=== PATIENT | male | born 1965 | race Caucasian/White ===

== ENCOUNTER 2017-10-22 10:03 | Emergency (ER) | payer OTHER, SELFPAY ==
[2017-10-22 10:04] VITALS: BP 159/94; PULSE 89; RESP 18; TEMP 36.5; O2SAT 96; BMI 38.4
--- NOTE | 2017-10-22 10:43 | XR_ITS ---
XR chest 2V HISTORY: ITS.REASON: left chest pain. ORDERING PHYSICIAN: Georgina Haas MD PATIENT AGE: 52 years COMPARISON: 01/23/2008 FINDINGS: The cardiomediastinal silhouette and pulmonary vascularity are within normal limits. The lungs are clear without infiltrates, suspicious nodules, or pleural effusions. There is slight decrease in height anteriorly of T11 and T12 which may be chronic.. IMPRESSION: 1. No acute cardiac or pulmonary pathology. 2. Mild decrease in height of T11 and T12 possibly chronic
--- NOTE | 2017-10-22 10:46 | HMH.EDGENADL ---
ED Disposition Clinical Impression: MUSCULESKELETAL CHEST PAIN, HTN, Diabetes mellitus Disposition: Home, Self-Care Condition on Discharge: Good Additional Instructions: The patient was ruled out for myocardial infarction and pulmonary embolism by negative troponin and d-dimer. His pain was musculoskeletal in nature. I had an extensive discussion with Mr. Greenfield about the need of controlling his cardiac risk factors. Need to take his medications for blood pressure and diabetes. Need to follow-up with a primary care physician for cholesterol checkup. He was advised for a daily aspirin and was given a prescription for muscle relaxant Robaxin. He verbalized understanding. He was discharged in a hemodynamically and neurologically condition. Referrals: Rosalie Streeter APRN [Primary Care Provider] - Juan Jose David MD [Staff Physician] - - Critical Care Critical Care Time: No Attestation: On 10/22/17, the high probability of a clinically significant, sudden or life threatening deterioration of the following system(s) required my full and direct attention, intervention and personal management. The time I documented below is in addition to time spent performing reported procedures but includes the following listed in this critical care notation. Medical Decision Making Vital Signs: 10/22/17 10:04 10/23/17 00:19 Temperature 97.7 F 98.3 F Temperature Source Oral Oral Pulse Rate 86 Pulse Rate [Right Brachial] 89 Respiratory Rate 18 20 Blood Pressure 153/91 Blood Pressure [Right Arm] 159/94 Blood Pressure Mean [Right Arm] 115 Blood Pressure Source Automatic Cuff Blood Pressure Source [Right Arm] Automatic Cuff Blood Pressure Position Sitting Blood Pressure Position [Right Arm] Sitting 02 Sat by Pulse Oximetry 96 Oxygen Delivery Method Room Air Room Air - Lab Data Lab Results 10/22/17 11:00: WBC 7.3, RBC 5.24, Hgb 16.1, Hct 48.2, MCV 91.9, MCH 30.7, MCHC 33.3, RDW 13.1, Plt Count 270, MPV 7.6, Neut % (Auto) 74.4, Lymph % (Auto) 18.0, [place] % (Auto) 5.7, Eos % (Auto) 1.5, Baso % (Auto) 0.5, Neut # (Auto) 5.4, Lymph # (Auto) 1.3, [place] # (Auto) 0.4, Eos # (Auto) 0.1, Baso # (Auto) 0.0 10/22/17 11:00: D-Dimer 126 10/22/17 11:00: Sodium 137, Potassium 3.7, Chloride 100, Carbon Dioxide 30, Anion Gap 10.7, BUN 7, Creatinine 0.85, Estimated Creat Clear 172, Estimated GFR > 60, Est GFR ( Amer) > 60, Glucose 221 H, Calcium 8.4 L, Total Bilirubin 0.4, AST 23, ALT 35, Alkaline Phosphatase 110, Total Creatine Kinase 187, CK-MB (CK-2) 0.5, CK-MB (CK-2) Rel Index 0.3, Troponin I < 0.02, Total Protein 7.8, Albumin 3.8, Globulin 4.0 H, Albumin/Globulin Ratio 1.0 L 10/22/17 11:00: B-Natriuretic Peptide 24 Result diagrams: 10/22/17 11:00 10/22/17 11:00 Orders (Tests/Meds): ED MEDICATIONS Discontinued Medications Generic Name Dose Route Start Last Admin Trade Name Milind PRN Reason Stop Dose Admin Methocarbamol 1,000 mg 10/22/17 10:45 Methocarbamol 500mg Tablet PO 10/22/17 10:46 ONCE ONE ORDERS Category Date Time Status ECG Request by /Nse Stat Y 10/22/17 10:43 Ordered - Demarco Inquiry Pt receiving controlled substance: No Demarco was queried for this patient: No General Adult HPI - General Chief complaint: PAIN Stated complaint: L breast pain, upper back pain Mode of Arrival: Ambulatory Source of Information: Patient Limitations: No Limitations Description of Symptoms (Recalled from ER Triage Doc. by RN): Pt reports pain in L breast area and upper back that began yesterday, states pain is intermittent and spasms in nature. States pain makes his fingertips go numb. States pain worsens with movement. - History of Present Illness HPI narrative: 52 years old white male with long-standing history of hypertension diabetes and left and right cardiac catheterization 1 year ago that was free of disease. The patient account. He has not seen his primary care physic
--- NOTE | 2017-10-22 10:49 | ED_ITS ---
ED Disposition Clinical Impression: MUSCULESKELETAL CHEST PAIN, HTN, Diabetes mellitus Disposition: Home, Self-Care Condition on Discharge: Good Additional Instructions: The patient was ruled out for myocardial infarction and pulmonary embolism by negative troponin and d-dimer. His pain was musculoskeletal in nature. I had an extensive discussion with Mr. Greenfield about the need of controlling his cardiac risk factors. Need to take his medications for blood pressure and diabetes. Need to follow-up with a primary care physician for cholesterol checkup. He was advised for a daily aspirin and was given a prescription for muscle relaxant Robaxin. He verbalized understanding. He was discharged in a hemodynamically and neurologically condition. Referrals: Rosalie Streeter APRN [Primary Care Provider] - Juan Jose David MD [Staff Physician] - - Critical Care Critical Care Time: No Attestation: On 10/22/17, the high probability of a clinically significant, sudden or life threatening deterioration of the following system(s) required my full and direct attention, intervention and personal management. The time I documented below is in addition to time spent performing reported procedures but includes the following listed in this critical care notation. Medical Decision Making Vital Signs: 10/22/17 10:04 10/23/17 00:19 Temperature 97.7 F 98.3 F Temperature Source Oral Oral Pulse Rate 86 Pulse Rate [Right Brachial] 89 Respiratory Rate 18 20 Blood Pressure 153/91 Blood Pressure [Right Arm] 159/94 Blood Pressure Mean [Right Arm] 115 Blood Pressure Source Automatic Cuff Blood Pressure Source [Right Arm] Automatic Cuff Blood Pressure Position Sitting Blood Pressure Position [Right Arm] Sitting 02 Sat by Pulse Oximetry 96 Oxygen Delivery Method Room Air Room Air - Lab Data Lab Results 10/22/17 11:00: WBC 7.3, RBC 5.24, Hgb 16.1, Hct 48.2, MCV 91.9, MCH 30.7, MCHC 33.3, RDW 13.1, Plt Count 270, MPV 7.6, Neut % (Auto) 74.4, Lymph % (Auto) 18.0 , [place] % (Auto) 5.7, Eos % (Auto) 1.5, Baso % (Auto) 0.5, Neut # (Auto) 5.4, Lymph # (Auto) 1.3, [place] # (Auto) 0.4, Eos # (Auto) 0.1, Baso # (Auto) 0.0 10/22/17 11:00: D-Dimer 126 10/22/17 11:00: Sodium 137, Potassium 3.7, Chloride 100, Carbon Dioxide 30, Anion Gap 10.7, BUN 7, Creatinine 0.85, Estimated Creat Clear 172, Estimated GFR > 60, Est GFR ( Amer) > 60, Glucose 221 H, Calcium 8.4 L, Total Bilirubin 0.4, AST 23, ALT 35, Alkaline Phosphatase 110, Total Creatine Kinase 187, CK-MB (CK-2) 0.5, CK-MB (CK-2) Rel Index 0.3, Troponin I < 0.02, Total Protein 7.8, Albumin 3.8, Globulin 4.0 H, Albumin/Globulin Ratio 1.0 L 10/22/17 11:00: B-Natriuretic Peptide 24 Result diagrams: 10/22/17 11:00 10/22/17 11:00 Orders (Tests/Meds): ED MEDICATIONS Discontinued Medications Generic Name Dose Route Start Last Admin Trade Name Milind PRN Reason Stop Dose Admin Methocarbamol 1,000 mg 10/22/17 10:45 Methocarbamol 500mg Tablet PO 10/22/17 10:46 ONCE ONE ORDERS Category Date Time Status ECG Request by /Isac Stat Y 10/22/17 10:43 Ordered - Demarco Inquiry Pt receiving controlled substance: No Demarco was queried for this patient: No General Adult HPI - General Chief complaint: PAIN Stated complaint: L breast pain, upper back pain
[2017-10-22 20:35] LABS: Creatine Kinase 187 U/L (39-308)
[2017-10-22 20:36] LABS: Alanine Aminotransferase 35 U/L (12-78); Albumin Level 3.8 gm/dL (3.4-5.0); Anion Gap 10.7 mEq/L (5-15); Aspartate Amino Transferase 23 U/L (15-37); Bilirubin,Total 0.4 mg/dL (0.2-1.0); Blood Urea Nitrogen 7 mg/dL (7-18); CKMB Relative Index 0.3 U/L (0-4.0); Calcium 8.4 mg/dL (8.5-10.1); Carbon Dioxide 30 mmol/L (21.0-32.0); Chloride 100 mmol/L (98-107); Creatine Kinase MB 0.5 mg/ml (0.0-3.6); Creatinine Clearance Estimated 172 mL/min (0-300); Creatinine,Serum 0.85 mg/dL (0.70-1.30); Estimated Glomerular Filt Rate > 60 ml/min (>60); GFR (African American) > 60 ML/MIN (>60); Glucose 221 mg/dL (74-106); Potassium 3.7 mmoL/L (3.5-5.1); Sodium 137 mmol/L (136-145); Total Protein,Serum 7.8 gm/dL (6.4-8.2); Troponin I < 0.02 ng/ml (0.00-0.06)
[2017-10-22 20:37] LABS: Alkaline Phosphatase 110 U/L (46-116); D-Dimer 126 (0-400); Hematocrit 48.2 % (42.0-52.0); Hemoglobin 16.1 g/dL (14.1-18.0); Mean Corpuscular Hemoglobin 30.7 pg (27.0-31.2); Mean Corpuscular Volume 91.9 fl (80-94); Red Blood Count 5.24 M/mm3 (4.60-6.20); White Blood Count 7.3 K/mm3 (4.8-10.8)
[2017-10-22 20:38] LABS: Basophils % 0.5 % (0.1-2.0); Eosinophils # 0.1 K/mm3 (0.0-0.4); Eosinophils % 1.5 % (0.1-12.0); Lymphocytes # 1.3 K/mm3 (0.7-4.5); Mean Corpuscular HGB Conc 33.3 g/dL (31.8-35.4); Mean Platelet Volume 7.6 fl (7.4-10.4); Monocytes # 0.4 K/mm3 (0.1-1.0); Monocytes % 5.7 % (1.7-9.3); Neutrophils # 5.4 K/mm3 (1.8-7.8); Neutrophils % 74.4 % (37.0-80.0); Platelet Count 270 K/mm3 (142-424); Red Cell Distribution Width 13.1 % (11.5-17.5)
[2017-10-23 00:19] VITALS: BP 153/91; PULSE 86; RESP 20; TEMP 36.8; O2SAT 98
== END 2017-10-22 12:34 | disposition home or self-care (01) ==
PROVIDERS: Emergency Provider Emergency Medicine; Family Provider Nurse Practitioner Family; PCP Nurse Practitioner Family
DX: R07.89 Other chest pain (principal); I10 Essential (primary) hypertension; E11.9 Type 2 diabetes mellitus without complications
CPT/HCPCS: 71046; 80053; 82550; 82553; 83880; 84484; 85025; 85378; 93005; 99282

== ENCOUNTER 2017-11-02 14:16 | Emergency (ER) | payer OTHER, SELFPAY ==
--- NOTE | 2017-11-02 16:08 | HMH.EDUTC ---
[facility] – [place], [place] Disposition Clinical Impression: BACK PAIN, Non-compliant behavior Back pain Qualifiers: Back pain location: back pain in unspecified location Chronicity: acute Back pain laterality: unspecified Qualified Code(s): M54.9 - Dorsalgia, unspecified Disposition: Left Against Medical Advice Condition on Discharge: Fair Additional Instructions: STRONGLY encouraged at least a follow up with Dr. David's office as scheduled. Educated on appropriate amount of tylenol/motrin and muscle relaxers. Aware of the risk associated with taking too much medication and reports I am not concerned See reevaluation notes. Lots of education re: risks but patient showed little interest in my speaking and walking away, out of the clinic, as I was speaking to him. Referrals: Juan Jsoe David MD [Staff Physician] - (Call tomorrow for possible appt tomorrow but if can't get in, scheduled appt for (one week) at 2pm with Linda.) Time of Disposition: 16:45 Medical Decision Making - Medical Records Medical records reviewed: Yes: I reviewed the patient's medical records. MR Comment: all of ER visit last week rvwd - Physician Consults Physician Consulted: Dr. De Los Santos, ER MD Time: 16:30 Reason -: Pt condition Comment/Response: Discussed PMHx, HPI, visit last week, complaints and exam today. He rvwd chart from last week and today. Suggest cardiac workup and follow up with primary care. Called Dr. David's office. Appt for sure in one week, at 2pm w/ Eugonda. Could potentially see tomorrow if one of their providers is no longer sick. Pt to call in morning for appt tomorrow. - Demarco Inquiry Pt receiving controlled substance: No - Reevaluation(s) Time: 16:20 Reevaluation #1: 0220: Discussed possible differentials and treatment plans with patient. Refusing toradol and/or norflex injections. Absolutely will not agree to any shot pt reports. Aware I will discuss his case with the ERMD as he reports trying most treatment options. 1640: Discussed ER MD's recommendations and scheduled follow up appt easily with [place] in Dr. David's office. No interview required and she had never heard of this. Pt refusing any workup, even an EKG, and still refusing injections. Ready to leave without treatment. Discussed risk associated w/ chronic untreated health conditions and current symptoms/possible differentials. Pt refusing any workup and any treatment now. He isn't sure why he even came in he states. Reports again that a previous provider told him there was nothing wrong and the ER last week told him it was muscle so obviously I should be fine and will fucking live with it . Attempted to discuss risks and possible outcomes, pt interrupts and says I know. I will like my parents and I am ok with that . Denies SI/HI/depression. It just is what it is . States he will most likely not got to the follow up appt I scheduled for him and he is not interested in restarting any medications despite the life threatening health complications he is at risk for. Attempted to make aware that several of the medications he was taking could potentially help this pain but patient already on his way down the all towards the exit and is no longer acknowledging my speaking. [facility] – [place], [place] HPI - General Stated complaint: muscle spasm Time Seen by Provider: 11/02/17 16:08 - History of Present Illness Provider Complaint: c/o persistant muscle spasms since ER visit last week. no known injuries/trauma. No longer in chest but instead, have moved multiple times to different locations. Was intially chest. Seen in ER. Cardiac cause ruled out. Dx musculoskeletal and STRONGLY enc follow up with primary care. Pt has not followed up. Reports previous PCP told him after a heart cath one year ago that nothing was wrong with me and I was just too fat . pt states he decided if nothing was wrong then he no longer needed to see a doctor or take any of his medications. Hasn't taken any routine meds sin
== END 2017-11-02 17:13 | disposition left against medical advice (07) ==
PROVIDERS: Emergency Provider Nurse Practitioner Family; Family Provider Nurse Practitioner Family
DX: M54.9 Dorsalgia, unspecified (principal); Z53.21 Procedure and treatment not carried out due to patient leaving prior to being seen by health care provider; I10 Essential (primary) hypertension; F41.9 Anxiety disorder, unspecified; E11.9 Type 2 diabetes mellitus without complications; Z91.19 Patient's noncompliance with other medical treatment and regimen
CPT/HCPCS: 99201

== ENCOUNTER → 2017-11-24 11:04 | Outpatient (CLI) | payer OTHER, SELFPAY ==
--- NOTE | 2017-11-24 11:20 | CA_ITS ---
PROCEDURE: 2-D M-mode and color Doppler study INDICATIONS FOR THE TEST: Chest pain X COPD Heart Murmur Tobacco Smoking Palpitations Fatigue Syncope Edema HypertensionXDiabetes MellitusX Rheumatic Fever SOB DOEXObesityXHyperlipidemiaX Family History HD Additional History CAD PATIENT INFORMATION HEIGHT: 70 WEIGHT:234 GENDER: Male B/P:120/80 2-D/M-MODE INTERPRETATION: 2-D MEASUREMENTS OBSERVED VALUES IN CMS Right Ventricular Dimension (RVDd) 2.1 Interventricular Septum (Thickness)(IVsd) 1.0 Left Ventricular Internal Dimensions(LVIDd) 5.7 Left Ventricular Posterior Wall (Thickness)(LVPWd) 1.0 Aortic Root 3.2 Aortic Cusp Separation 1.7 Left Atrial Dimensions (LAD) 4.0 2D 1. Left atrium is mildly enlarged, left ventricle is normal size, left ventricle wall thickness is upper limit of the normal, there is preserved left ventricular systolic function, visually estimated ejection fraction 55% with no obvious regional wall motion abnormality. 2. The right atrium and right ventricle are mildly enlarged with normal contractility 3. The aortic valve is minimally thickened and fibrosed. 4. The mitral and tricuspid valve is structurally normal. 5. The pulmonic valve is poorly visualized. 6. No significant pericardial effusion noted. DOPPLER INTERROGATION: Doppler interrogation of the aortic, mitral and tricuspid valvular presence of mild mitral and tricuspid regurgitation, tricuspid and jet velocity is insufficient for calculation of the right ventricular systolic pressure, grade 1 diastolic dysfunction seen without tissue Doppler evidence of raised left atrial pressure. CONCLUSION: 1. Mild biatrial enlargement, normal left ventricular size, visually estimated ejection fraction 55% with no obvious regional wall motion abnormality, grade 1 diastolic dysfunction seen without tissue Doppler evidence of raised left atrial pressure. 2. Mild mitral and tricuspid regurgitation 3. No significant pericardial effusion noted.
[2017-11-24 12:04] LABS: Basophils # 0.1 K/mm3 (0-0.2); Eosinophils # 0.1 K/mm3 (0.0-0.4); Eosinophils % 2.5 % (0.1-12.0); Hemoglobin 16.8 g/dL (14.1-18.0); Lymphocytes # 1.5 K/mm3 (0.7-4.5); Lymphocytes % 27.2 K/mm3 (10-50); Mean Corpuscular HGB Conc 32.9 g/dL (31.8-35.4); Mean Corpuscular Hemoglobin 29.6 pg (27.0-31.2); Mean Corpuscular Volume 89.8 fl (80-94); Mean Platelet Volume 7.3 fl (7.4-10.4); Monocytes # 0.4 K/mm3 (0.1-1.0); Monocytes % 7.5 % (1.7-9.3); Neutrophils # 3.4 K/mm3 (1.8-7.8); Neutrophils % 61.9 % (37.0-80.0); Platelet Count 274 K/mm3 (142-424); Red Blood Count 5.68 M/mm3 (4.60-6.20); Red Cell Distribution Width 12.8 % (11.5-17.5); White Blood Count 5.5 K/mm3 (4.8-10.8)
[2017-11-24 12:49] LABS: Alanine Aminotransferase 34 U/L (12-78); Albumin Level 3.8 gm/dL (3.4-5.0); Alkaline Phosphatase 110 U/L (46-116); Anion Gap 9.7 mEq/L (5-15); Aspartate Amino Transferase 17 U/L (15-37); Bilirubin,Total 0.5 mg/dL (0.2-1.0); Blood Urea Nitrogen 11 mg/dL (7-18); Carbon Dioxide 34 mmol/L (21.0-32.0); Chloride 102 mmol/L (98-107); Chol/HDL Ratio 6.5 (1-3.5); Cholesterol 208 mg/dL (140-200); Creatinine,Serum 0.88 mg/dL (0.70-1.30); Estimated Glomerular Filt Rate 91 ml/min (>60); GFR (African American) 110 ML/MIN (>60); Glucose 207 mg/dL (74-106); HDL Cholesterol 32 mg/dL (27-67); LDL Cholesterol 161 mg/dL (0-130); Potassium 4.7 mmoL/L (3.5-5.1); Sodium 141 mmol/L (136-145); T4 (Thyroxine) 6.1 ug/dl (4.7-13.3); Thyroid Stimulating Hormone 0.71 uIU/ml (0.358-3.740); Total Protein,Serum 7.8 gm/dL (6.4-8.2); Triglycerides 77 mg/dL (30-200); VLDL Cholesterol 15 mg/dL (0-40)
[2017-11-24 15:05] LABS: Hemoglobin A1C 8.4 % (0.0-7.0)
[2017-11-25 06:16] LABS: Hep A Ab, IgM Negative (Negative); Hepatitis B Core Antibody IgM Negative (Negative); Hepatitis B Surface Antigen Negative (Negative)
[2017-11-25 19:09] LABS: Hepatitis C Antibody 0.2 s/co ratio (0.0-0.9); Vitamin D 25 Hydroxy 34.1 ng/mL (30.0-100.0)
[2017-11-25 19:11] LABS: Microalbumin, Urine 3.1 ug/mL (Not Estab.)
== END ==
PROVIDERS: Family Provider Nurse Practitioner Family; PCP Nurse Practitioner Family; Visit Provider Internal Medicine
DX: I20.1 Angina pectoris with documented spasm (principal); I10 Essential (primary) hypertension; E78.5 Hyperlipidemia, unspecified; E11.9 Type 2 diabetes mellitus without complications; K21.9 Gastro-esophageal reflux disease without esophagitis; G47.33 Obstructive sleep apnea (adult) (pediatric)
CPT/HCPCS: 36415; 80053; 80061; 80074; 82043; 82652; 83036; 84436; 84443; 85025; 93306

== ENCOUNTER → 2017-11-30 10:10 | Outpatient (REF) | payer OTHER, SELFPAY ==
[2017-11-30 13:54] LABS: Amphetamine/Metha Screen,Urine Negative ng/mL (<1000); Barbiturates Screen,Urine Negative ng/mL (<200); Benzodiazepines Screen,Urine Negative ng/mL (200); Cannabinoid Screen,Urine Negative ng/mL (<50); Cocaine Screen,Urine Negative ng/g (<300); Methadone Screen,Urine Negative ng/mL (<300); Opiate Screen,Urine Negative ng/mL (<300); Phencyclidine Screen,Urine Negative ng/mL (<25)
== END ==
LOC: LAB 10:10
PROVIDERS: Visit Provider Nurse Practitioner Family
DX: Z79.899 Other long term (current) drug therapy (principal)
CPT/HCPCS: 80305

== ENCOUNTER → 2018-02-19 11:29 | Outpatient (CLI) | payer OTHER, SELFPAY | PROVIDERS: PCP Nurse Practitioner Family; Visit Provider Internal Medicine Cardiovascular Disease | DX: R06.02 Shortness of breath (principal); I10 Essential (primary) hypertension | CPT/HCPCS: 95806 ==

== ENCOUNTER → 2018-04-10 14:14 | Outpatient (REF) | payer OTHER, SELFPAY ==
[2018-04-10 19:52] LABS: Amphetamine/Metha Screen,Urine Negative ng/mL (<1000); Barbiturates Screen,Urine Negative ng/mL (<200); Benzodiazepines Screen,Urine Negative ng/mL (200); Cannabinoid Screen,Urine Negative ng/mL (<50); Cocaine Screen,Urine Negative ng/g (<300); Methadone Screen,Urine Negative ng/mL (<300); Opiate Screen,Urine Negative ng/mL (<300); Phencyclidine Screen,Urine Negative ng/mL (<25)
== END ==
LOC: LAB 14:14
PROVIDERS: Visit Provider Nurse Practitioner Family
DX: Z79.899 Other long term (current) drug therapy (principal)
CPT/HCPCS: 80305

== ENCOUNTER → 2018-06-13 16:20 | Outpatient (REF) | payer OTHER, SELFPAY ==
[2018-06-13 19:43] LABS: Amphetamine/Metha Screen,Urine Negative ng/mL (<1000); Barbiturates Screen,Urine Negative ng/mL (<200); Benzodiazepines Screen,Urine Negative ng/mL (<200); Cannabinoid Screen,Urine Negative ng/mL (<50); Cocaine Screen,Urine Negative ng/mL (<300); Methadone Screen,Urine Negative ng/mL (<300); Opiate Screen,Urine Negative ng/mL (<300); Phencyclidine Screen,Urine Negative ng/mL (<25)
== END ==
LOC: LAB 16:20
PROVIDERS: Visit Provider Nurse Practitioner Family
DX: Z79.899 Other long term (current) drug therapy (principal)
CPT/HCPCS: 80305

== ENCOUNTER → 2018-07-13 15:16 | Outpatient (REF) | payer OTHER, SELFPAY ==
[2018-07-13 18:20] LABS: Basophils # 0.1 K/mm3 (0-0.2); Basophils % 0.9 % (0.1-2.0); Eosinophils # 0.2 K/mm3 (0.0-0.4); Eosinophils % 3.2 % (0.1-12.0); Hematocrit 46.5 % (42.0-52.0); Hemoglobin 15.3 g/dL (14.1-18.0); Lymphocytes # 1.8 K/mm3 (0.7-4.5); Lymphocytes % 29.2 K/mm3 (10-50); Mean Corpuscular HGB Conc 32.8 g/dL (31.8-35.4); Mean Corpuscular Volume 94.3 fl (80-94); Mean Platelet Volume 8.1 fl (7.4-10.4); Monocytes # 0.4 K/mm3 (0.1-1.0); Monocytes % 6.7 % (1.7-9.3); Neutrophils # 3.7 K/mm3 (1.8-7.8); Neutrophils % 59.9 % (37.0-80.0); Platelet Count 324 K/mm3 (142-424); Red Blood Count 4.93 M/mm3 (4.60-6.20); Red Cell Distribution Width 13.9 % (11.5-17.5); White Blood Count 6.2 K/mm3 (4.8-10.8)
[2018-07-13 18:33] LABS: Alanine Aminotransferase 39 U/L (12-78); Alkaline Phosphatase 93 U/L (46-116); Anion Gap 14.1 mEq/L (5-15); Aspartate Amino Transferase 26 U/L (15-37); Bilirubin,Total 0.4 mg/dL (0.2-1.0); Blood Urea Nitrogen 9 mg/dL (7-18); Calcium 9.1 mg/dL (8.5-10.1); Carbon Dioxide 29 mmol/L (21.0-32.0); Chloride 100 mmol/L (98-107); Chol/HDL Ratio 4.9 (1-3.5); Cholesterol 175 mg/dL (140-200); Creatinine,Serum 0.83 mg/dL (0.70-1.30); Estimated Glomerular Filt Rate 97 ml/min (>60); GFR (African American) 118 ML/MIN (>60); Glucose 177 mg/dL (74-106); HDL Cholesterol 36 mg/dL (27-67); LDL Cholesterol 110 mg/dL (0-130); Potassium 4.1 mmoL/L (3.5-5.1); Sodium 139 mmol/L (136-145); T4 (Thyroxine) 7.6 ug/dl (4.7-13.3); Thyroid Stimulating Hormone 1.18 uIU/ml (0.358-3.740); Triglycerides 147 mg/dL (30-200); VLDL Cholesterol 29 mg/dL (0-40)
[2018-07-13 19:16] LABS: Hemoglobin A1C 7.3 % (0.0-7.0)
[2018-07-18 11:21] LABS: Microalbumin, Urine <3.0 ug/mL (Not Estab.)
== END ==
LOC: LAB 15:16
PROVIDERS: Emergency Medicine; Visit Provider Nurse Practitioner Family
DX: E11.9 Type 2 diabetes mellitus without complications (principal)
CPT/HCPCS: 80053; 80061; 82043; 82570; 83036; 84436; 84443; 85025

== ENCOUNTER → 2018-07-16 08:52 | Outpatient (CLI) | payer OTHER, SELFPAY | PROVIDERS: Visit Provider Emergency Medicine | DX: E11.9 Type 2 diabetes mellitus without complications (principal) ==

== ENCOUNTER → 2019-03-08 14:35 | Outpatient (CLI) | payer OTHER, SELFPAY ==
--- NOTE | 2019-03-08 14:39 | XR_ITS ---
XR knee LT 4V Comparison: No previous Left knee for comparison Contralateral right knee radiograph from 07/11/2018 utilized. History: 54-year-old with knee pain on left. Past 3 months. No known injury. Technique: Weightbearing AP, lateral and [place] views were performed as well as oblique. Left knee Findings:. There is slight narrowing at the medial compartment on the standing weightbearing view with mild sharpening seen at joint margins most evident medial margin medial tibial plateau. There is mild sclerosis at the medial femoral condyle with a small old appearing area of osteochondritis DEXA scan, osteochondral defect seen at the lateral weightbearing portion of the medial femoral condyle. This measures up to 4 mm wide 2 mm depth. Likely resides towards the anterior aspect of the medial femoral condyle. Lateral compartment is unremarkable. Patellofemoral relationships appear normal. No significant joint effusion. Bones well mineralized. IMPRESSION Developing osteoarthritic changes at medial compartment. Mild narrowing the medial compartment.. 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 . No significant joint effusion evident
== END ==
PROVIDERS: PCP Nurse Practitioner Family; Visit Provider Nurse Practitioner Family
DX: M25.562 Pain in left knee (principal)
CPT/HCPCS: 73564

== ENCOUNTER → 2019-04-05 13:12 | Outpatient (CLI) | payer OTHER, SELFPAY ==
[2019-04-05 13:31] LABS: Basophils # 0.1 K/mm3 (0-0.2); Basophils % 1.1 % (0.1-2.0); Eosinophils # 0.3 K/mm3 (0.0-0.4); Eosinophils % 4.9 % (0.1-12.0); Hematocrit 48.8 % (42.0-52.0); Hemoglobin 15.7 g/dL (14.1-18.0); Lymphocytes % 30.9 % (10-50); Mean Corpuscular HGB Conc 32.2 g/dL (31.8-35.4); Mean Corpuscular Hemoglobin 29.3 pg (27.0-31.2); Mean Corpuscular Volume 91.2 fl (80-94); Mean Platelet Volume 7.9 fl (7.4-10.4); Monocytes # 0.4 K/mm3 (0.1-1.0); Monocytes % 6.1 % (1.7-9.3); Neutrophils # 3.7 K/mm3 (1.8-7.8); Neutrophils % 56.9 % (37.0-80.0); Platelet Count 298 K/mm3 (142-424); Red Blood Count 5.35 M/mm3 (4.60-6.20); Red Cell Distribution Width 13.8 % (11.5-17.5); White Blood Count 6.5 K/mm3 (4.8-10.8)
[2019-04-05 14:28] LABS: Alanine Aminotransferase 45 U/L (12-78); Albumin/Globulin Ratio 1.1 (1.1-1.8); Alkaline Phosphatase 96 U/L (46-116); Anion Gap 15.5 mEq/L (5-15); Aspartate Amino Transferase 29 U/L (15-37); Bilirubin,Total 0.7 mg/dL (0.2-1.0); Blood Urea Nitrogen 14 mg/dL (7-18); Calcium 8.9 mg/dL (8.5-10.1); Carbon Dioxide 30 mmol/L (21.0-32.0); Chloride 99 mmol/L (98-107); Chol/HDL Ratio 4.9 (1-3.5); Cholesterol 158 mg/dL (140-200); Creatinine,Serum 0.91 mg/dL (0.70-1.30); Estimated Glomerular Filt Rate 87 ml/min (>60); GFR (African American) 105 ML/MIN (>60); Globulin 3.7 gm/dl (1.3-3.2); Glucose 189 mg/dL (74-106); HDL Cholesterol 32 mg/dL (27-67); LDL Cholesterol 93 mg/dL (0-130); Potassium 3.5 mmoL/L (3.5-5.1); Prostate Specific Ag Screen 0.3 ng/mL (0.0-4.0); Sodium 141 mmol/L (136-145); Thyroid Stimulating Hormone 1.09 uIU/ml (0.358-3.740); Total Protein,Serum 7.7 gm/dL (6.4-8.2); Triglycerides 163 mg/dL (30-200); VLDL Cholesterol 33 mg/dL (0-40)
[2019-04-05 17:17] LABS: Hemoglobin A1C 8.4 % (0.0-7.0)
[2019-04-07 21:40] LABS: Vitamin D 25 Hydroxy 52.9 ng/mL (30.0-100.0)
== END ==
PROVIDERS: Visit Provider Nurse Practitioner Family
DX: E11.9 Type 2 diabetes mellitus without complications (principal); R53.83 Other fatigue; G62.9 Polyneuropathy, unspecified; E78.5 Hyperlipidemia, unspecified; Z12.5 Encounter for screening for malignant neoplasm of prostate; Z13.89 Encounter for screening for other disorder; Z79.84 Long term (current) use of oral hypoglycemic drugs
CPT/HCPCS: 80053; 80061; 82652; 83036; 84436; 84443; 85025; G0103

== ENCOUNTER → 2019-12-05 17:12 | Outpatient (CLI) | payer OTHER, SELFPAY ==
[2019-12-05 18:05] LABS: Basophils # 0.1 K/mm3 (0-0.2); Basophils % 1.1 % (0.1-2.0); Eosinophils # 0.4 K/mm3 (0.0-0.4); Eosinophils % 4.8 % (0.1-12.0); Hemoglobin 16.6 g/dL (14.1-18.0); Lymphocytes # 1.8 K/mm3 (0.7-4.5); Lymphocytes % 21.1 % (10-50); Mean Corpuscular HGB Conc 34.6 g/dL (31.8-35.4); Mean Corpuscular Hemoglobin 31.8 pg (27.0-31.2); Mean Corpuscular Volume 91.8 fl (80-94); Mean Platelet Volume 7.7 fl (7.4-10.4); Monocytes # 0.6 K/mm3 (0.1-1.0); Monocytes % 7.5 % (1.7-9.3); Neutrophils # 5.4 K/mm3 (1.8-7.8); Neutrophils % 65.5 % (37.0-80.0); Platelet Count 369 K/mm3 (142-424); Red Blood Count 5.23 M/mm3 (4.60-6.20); Red Cell Distribution Width 12.8 % (11.5-17.5); White Blood Count 8.3 K/mm3 (4.8-10.8)
[2019-12-05 19:03] LABS: Chloride 99 mmol/L (98-107); Sodium 141 mmol/L (136-145)
[2019-12-05 19:04] LABS: Potassium 4.2 mmoL/L (3.5-5.1)
[2019-12-05 19:06] LABS: Alanine Aminotransferase 27 U/L (12-78); Albumin Level 4.5 g/dl (3.5-5.0); Albumin/Globulin Ratio 1.4 (1.1-1.8); Alkaline Phosphatase 86 U/L (38-126); Anion Gap 16.2 mEq/L (5-15); Aspartate Amino Transferase 30 U/L (17-59); Bilirubin,Total 0.3 mg/dl (0.2-1.3); Blood Urea Nitrogen 13 mg/dl (9-20); Calcium 9.7 mg/dl (8.4-10.2); Carbon Dioxide 30 mmol/L (22.0-30.0); Chol/HDL Ratio 6.1 (1-3.5); Cholesterol 190 mg/dl (140-200); Creatine Kinase 202 U/L (55-170); Estimated Glomerular Filt Rate 88 ml/min (>60); GFR (African American) 107 ML/MIN (>60); Globulin 3.2 g/dL (1.3-3.2); Glucose 159 mg/dl (74-100); HDL Cholesterol 31 mg/dl (40-60); Total Protein,Serum 7.7 g/dl (6.3-8.2); Triglycerides 241 mg/dl (30-150); VLDL Cholesterol 48 mg/dL (0-40)
[2019-12-05 19:15] LABS: CKMB Relative Index 0.4 U/L (0-4.0); Creatine Kinase MB 0.9 ng/ml (0.0-2.03)
[2019-12-05 19:18] LABS: Direct LDL Cholesterol 136.08 mg/dL (100-129)
[2019-12-05 19:23] LABS: Troponin I < 0.01 ng/ml (0.00-0.034)
[2019-12-05 19:24] LABS: T4 (Thyroxine) 8.1 ug/dl (5.53-11.0)
[2019-12-05 19:52] LABS: Hemoglobin A1C 7.5 % (4.0-6.0)
[2019-12-07 08:45] LABS: Vitamin D 25 Hydroxy 33.5 ng/mL (30.0-100.0)
[2019-12-07 09:14] LABS: Creatinine, Urine 54.8 mg/dL (Not Estab.); Microalbumin, Urine 10.8 ug/mL (Not Estab.)
== END ==
PROVIDERS: Visit Provider Nurse Practitioner Family
DX: E11.9 Type 2 diabetes mellitus without complications (principal); R07.9 Chest pain, unspecified; Z79.84 Long term (current) use of oral hypoglycemic drugs
CPT/HCPCS: 80053; 80061; 82043; 82550; 82553; 82570; 82652; 83036; 84436; 84443; 84484; 85025

== ENCOUNTER → 2019-12-27 08:56 | Outpatient (CLI) | payer OTHER, SELFPAY ==
--- NOTE | 2019-12-27 09:03 | XR_ITS ---
PROCEDURE: XR KNEE RT 4V CLINICAL INDICATION: knee pain Right knee pain COMPARISON: [id number] XR knee RT 3V from 07/11/2018 XR KNEE RT 3V from 12/10/2019 FINDINGS: No fracture or dislocation. No lytic or blastic change. There is normal mineralization. There is slight decrease in the joint space medially suggesting minimal osteoarthritic change. There is mild chondrocalcinosis of medial and lateral meniscus. IMPRESSION: Chondrocalcinosis with minimal osteoarthritic change of the medial compartment Dictated by: Saran Serna MD 12/27/2019 10:06 Electronically signed by Saran Serna MD in [place] 12/27/2019 10:06
== END ==
PROVIDERS: PCP Nurse Practitioner Family; Visit Provider Orthopaedic Surgery
DX: M25.561 Pain in right knee (principal)
CPT/HCPCS: 73564

== ENCOUNTER → 2020-01-07 06:27 | Outpatient (CLI) | payer OTHER, SELFPAY ==
--- NOTE | 2020-01-07 06:29 | NM_ITS ---
APPROVED REPORT Exam: Nuclear Stress Test Indication: Chest pain, SOB, HTN, DM, High cholesterol, Former tobacco use, Family history Patient Location: Outpatient Stress Tech: Tena Vazquez [place] Tech:Nena Stafford, ARRT, RT (R)(N) Ht: 5 ft 9 in Wt: 250 lbs HR: 72 bpm BP: 129/78 mmHg BSA: 2.27 m2 BMI: 36.9 History: Chest pain, SOB, HTN, DM, High cholesterol, Former tobacco use, Family history Procedure: Patient received a 0.4 mg of intravenous Lexiscan, resting heart rate 72 bpm, resting blood pressure 129/78 mmHg, with Lexiscan maximum heart rate achived was 108 bpm which is Less than 85 % of the maximum predicted heart rate and blood pressure was 149/80 mmHg. Electrocardiogram Resting electrocardiogram showed sinus rhythm, with Lexiscan there is less than 1.[address] segment depression noted from the baseline EKG. The EKG portion of the Lexiscan Myoview is nondiagnostic. Cardiac Stress and Resting SPECT Images: Cardiac Stress and Resting SPECT images were obtained using technetium 99m Myoview 32.5 mCi stress and 10.34 mCi at rest. Gated SPECT with analysis of segmental wall motion and calculation of the ejection fraction also done. Cardiac stress and rest SPECT images show mild fixed defect in the inferior wall with normal coronary gated SPECT is likely secondary to soft tissue attenuation, no reversible ischemia seen. Computer derived ejection fraction is 64% with no regional wall motion abnormality, right ventricle is normal size and contractility. Conclusion: 1. The EKG portion of the Lexiscan Myoview is nondiagnostic. 2. No scintigraphic evidence of reversible ischemia seen, computer derived ejection fraction is 64% with no regional wall motion abnormality, right ventricle is normal size and contractility. 3. Likely normal Lexiscan Myoview study. Electronically signed by : Paul Vigil, 01/07/2020 19:38:30
--- NOTE | 2020-01-07 06:29 | CA_ITS ---
APPROVED REPORT EXAM: Comprehensive 2D, Doppler, and color-flow Echocardiogram Executive Director Of Marketing: Cheryl Raya RDCS Ht: 5 ft 9 in Wt: 246lbs BSA: 2.26 BP: 113/85 mmHg Indications: CP,SOA,KO,OBESITY,HTN,HLP,FAM HISTORY,ABN EKG 2D Dimensions LVOT 1.66 cm (M/F) 1.5-2.5 M-Mode Dimensions RVDd 2.39 cm (0.9-2.6) LVDd 5.76 cm (3.5-5.7) LVDs 4.25 cm (3.5-5.7) IVSd 0.80 cm (0.6-1.1) PWd 0.95 cm (0.6-1.1) EF (Teich) 50.70% FS 26.20% EDV (Teich) 163.90 mL ESV (Teich) 80.80 mL LV Diastology E/A Ratio 1.16 Mitral Valve MV A Velocity 64.00 (40-130 cm/s) Left Ventricle Left atrium is mildly enlarged, left ventricle is normal size, mild concentric left ventricular hypertrophy, visually estimated ejection fraction 55% with no regional wall motion abnormality, grade 1 diastolic dysfunction seen without tissue Doppler evidence of raise left atrial pressure. Right Ventricle Right atrium and right ventricular normal size and contractility. Aortic Valve Aortic valve is minimally thickened and fibrosed, there is no aortic stenosis or aortic insufficiency. Mitral Valve Mitral valve is grossly normal, there is mild mitral regurgitation. Tricuspid Valve Tricuspid valve is grossly normal, there is mild tricuspid regurgitation. Pulmonic Valve Pulmonic valve is poorly visualized. Great Vessels Aortic root is normal size. Pericardium No significant pericardial effusion noted. Conclusion 1. Mildly enlarged left atrium, normal left ventricular size, mild concentric left ventricular hypertrophy, visually estimated ejection fraction 55% with no regional wall motion abnormality, grade 1 diastolic dysfunction seen without tissue Doppler evidence of raise left atrial pressure. 2. Mild mitral and tricuspid regurgitation. 3. No significant pericardial effusion noted. Electronically signed by : Paul Vigil, 01/08/2020 07:53:48
--- NOTE | 2020-01-07 06:29 | CA_ITS ---
APPROVED REPORT Exam: Pharmacologic Technologist: Tena Vazquez Ht: 5 ft 9 in Wt: 250 lbs BSA: 2.27 m2 HR: 72 bpm BP: 129/78 mmHg Indications: Chest pain, Shortness of Breath Medical History Medications: Amlodipine,,,,, Aspirin,,,,, Metformin,,,,, Gabapentin,,,,, Losartan,,,,, HCTZ,,,,, Glipizide,,,,, BisOPROLOL,,,,, Stress Test Details Test: LEXISCAN HR Resting HR: 86 bpm Max Heart Rate (APMHR): 167 bpm Max HR Achieved: 108 bpm Target HR (85% APMHR): 141 bpm % of APMHR: 64 Recovery HR: 80 bpm BP Resting BP: 129.0/78.0 mmHg Max BP: 149.0/80.0 mmHg Recovery BP: 134.0/74.0 mmHg ECG Clinical Exercise duration: 04:02 min Highest Stage Achieved: Exercise capacity: 1.0 METs Stress ECG Conclusion Resting ECG: Normal sinus rhythm Symptoms: Shortness of air, moderate chest pressure, headache Arrhythmias/Ectopy: None ST-T Changes: No significant changes. Conclusion: Unremarkable Lexiscan stress. Myoview images reported separately. Test Summary REST . . . . . . . Resting REST 14:52 . . 86 . 129/ 78 . . Stage 1 . . . . . . . Myoview Injected Stage 1 01:00 . . 108 . . . . Stage 2 01:00 . . 96 . 149/ 80 . . Stage 3 . . . . . . . chest pressure Stage 3 01:00 . . 88 . 144/ 77 . . Stage 4 01:00 . . 89 . 139/ 77 . . Stage 4 01:02 . . 89 . 139/ 77 . Stop exercise at 04:02 RECOVERY 01:00 . . 90 . 149/ 80 . . RECOVERY 02:00 . . 82 . 149/ 80 . . RECOVERY 03:00 . . 85 . 134/ 74 . . RECOVERY 03:21 . . 82 . 134/ 74 . . Electronically signed by : Paul Vigil, 01/07/2020 19:35:19
--- NOTE | 2020-01-07 07:47 | HMH.ITSHM ---
Current Home Medications as stated by this patient Nita Greenfield or customer account representative. []NAPROXEN METFORMIN LOSARTAN HCTZ GLIPIZIDE GABAPENTIN BISOPROLOL ATORVASTATIN ASA AMLODIPINE
== END ==
PROVIDERS: PCP Nurse Practitioner Family; Visit Provider Urology
DX: I20.9 Angina pectoris, unspecified (principal); R06.00 Dyspnea, unspecified; E78.5 Hyperlipidemia, unspecified; I10 Essential (primary) hypertension
CPT/HCPCS: 78452; 93017; 93306; A9502; J2785

== ENCOUNTER → 2020-03-06 13:13 | Outpatient (CLI) | payer OTHER, SELFPAY ==
[2020-03-06 13:33] LABS: Basophils # 0.1 K/mm3 (0-0.2); Basophils % 1.6 % (0.1-2.0); Eosinophils # 0.2 K/mm3 (0.0-0.4); Eosinophils % 3.1 % (0.1-12.0); Hematocrit 48.7 % (42.0-52.0); Hemoglobin 16.4 g/dL (14.1-18.0); Lymphocytes # 1.7 K/mm3 (0.7-4.5); Lymphocytes % 29.2 % (10-50); Mean Corpuscular HGB Conc 33.7 g/dL (31.8-35.4); Mean Corpuscular Hemoglobin 31.8 pg (27.0-31.2); Mean Corpuscular Volume 94.4 fl (80-94); Mean Platelet Volume 8.2 fl (7.4-10.4); Monocytes # 0.3 K/mm3 (0.1-1.0); Neutrophils # 3.4 K/mm3 (1.8-7.8); Platelet Count 273 K/mm3 (142-424); Red Blood Count 5.16 M/mm3 (4.60-6.20); White Blood Count 5.7 K/mm3 (4.8-10.8)
[2020-03-06 13:35] LABS: Chloride 95 mmol/L (98-107)
[2020-03-06 13:36] LABS: Sodium 135 mmol/L (136-145)
[2020-03-06 13:38] LABS: Alanine Aminotransferase 42 U/L (12-78); Albumin Level 4.3 g/dl (3.5-5.0); Albumin/Globulin Ratio 1.3 (1.1-1.8); Alkaline Phosphatase 98 U/L (38-126); Aspartate Amino Transferase 40 U/L (17-59); Bilirubin,Total 0.7 mg/dl (0.2-1.3); Blood Urea Nitrogen 11 mg/dl (9-20); Carbon Dioxide 28 mmol/L (22.0-30.0); Cholesterol 170 mg/dl (140-200); Estimated Glomerular Filt Rate 101 ml/min (>60); GFR (African American) 122 ML/MIN (>60); Globulin 3.2 g/dL (1.3-3.2); Total Protein,Serum 7.5 g/dl (6.3-8.2); Triglycerides 214 mg/dl (30-150); VLDL Cholesterol 43 mg/dL (0-40)
[2020-03-06 13:39] LABS: Calcium 9.4 mg/dl (8.4-10.2); Chol/HDL Ratio 5.2 (1-3.5); Glucose 371 mg/dl (74-100); HDL Cholesterol 33 mg/dl (40-60)
[2020-03-06 13:50] LABS: Direct LDL Cholesterol 135.07 mg/dL (100-129)
[2020-03-06 13:53] LABS: Hemoglobin A1C 8.3 % (4.0-6.0)
[2020-03-06 13:56] LABS: T4 (Thyroxine) 8.6 ug/dl (5.53-11.0)
== END ==
PROVIDERS: Visit Provider Nurse Practitioner Family
DX: E11.9 Type 2 diabetes mellitus without complications (principal); Z79.84 Long term (current) use of oral hypoglycemic drugs; Z79.899 Other long term (current) drug therapy
CPT/HCPCS: 80053; 80061; 82652; 83036; 84436; 84443; 85025

== ENCOUNTER → 2021-04-07 19:59 | Outpatient (CLI) | payer OTHER, SELFPAY ==
[2021-04-07 20:31] LABS: Basophils # 0.1 K/mm3 (0-0.2); Basophils % 0.7 % (0.1-2.0); Eosinophils # 0.1 K/mm3 (0.0-0.4); Hematocrit 48.6 % (42.0-52.0); Hemoglobin 16.4 g/dL (14.1-18.0); Lymphocytes # 1.9 K/mm3 (0.7-4.5); Lymphocytes % 28.4 % (10-50); Mean Corpuscular HGB Conc 33.7 g/dL (31.8-35.4); Mean Corpuscular Hemoglobin 31.8 pg (27.0-31.2); Mean Corpuscular Volume 94.4 fl (80-94); Mean Platelet Volume 8.6 fl (7.4-10.4); Monocytes # 0.5 K/mm3 (0.1-1.0); Monocytes % 7.5 % (1.7-9.3); Neutrophils % 61.3 % (37.0-80.0); Platelet Count 287 K/mm3 (142-424); Red Blood Count 5.15 M/mm3 (4.60-6.20); Red Cell Distribution Width 13.9 % (11.5-17.5); White Blood Count 6.6 K/mm3 (4.8-10.8)
[2021-04-07 20:39] LABS: Alanine Aminotransferase 26 U/L (12-78); Albumin Level 4.3 g/dl (3.5-5.0); Albumin/Globulin Ratio 1.3 (1.1-1.8); Alkaline Phosphatase 90 U/L (38-126); Anion Gap 16.3 mEq/L (5-15); Aspartate Amino Transferase 28 U/L (17-59); Bilirubin,Total 0.8 mg/dl (0.2-1.3); Blood Urea Nitrogen 7 mg/dl (9-20); Calcium 9.3 mg/dl (8.4-10.2); Carbon Dioxide 29 mmol/L (22.0-30.0); Chloride 93 mmol/L (98-107); Chol/HDL Ratio 5.1 (1-3.5); Cholesterol 143 mg/dl (140-200); Estimated Glomerular Filt Rate 117 ml/min (>60); GFR (African American) 142 ML/MIN (>60); Globulin 3.2 g/dL (1.3-3.2); Glucose 329 mg/dl (74-100); HDL Cholesterol 28 mg/dl (40-60); Potassium 4.3 mmoL/L (3.5-5.1); Sodium 134 mmol/L (136-145); Total Protein,Serum 7.5 g/dl (6.3-8.2); Triglycerides 219 mg/dl (30-150); VLDL Cholesterol 44 mg/dL (0-40)
[2021-04-07 20:51] LABS: Direct LDL Cholesterol 80.95 mg/dL (100-129)
[2021-04-07 20:56] LABS: 25-OH Vitamin D, Total 40.1 ng/mL (30-100)
[2021-04-07 20:57] LABS: T4 (Thyroxine) 8.3 ug/dl (5.53-11.0)
[2021-04-07 21:11] LABS: Thyroid Stimulating Hormone 1.37 uIU/mL (0.465-4.68)
[2021-04-07 21:13] LABS: Prostate Specific Ag Screen 0.4 ng/ml (0.0-4.0)
[2021-04-07 21:31] LABS: Hemoglobin A1C 10.4 % (4.0-6.0)
[2021-04-08 11:27] LABS: Creatinine,Urine Random 35 mg/dL (Not Estab.)
[2021-04-08 11:40] LABS: Microalbumin < 6.000 mg/L (0-16.7)
== END ==
PROVIDERS: Visit Provider Nurse Practitioner Family
DX: E11.9 Type 2 diabetes mellitus without complications (principal); E78.5 Hyperlipidemia, unspecified; I10 Essential (primary) hypertension; I25.10 Atherosclerotic heart disease of native coronary artery without angina pectoris; M54.9 Dorsalgia, unspecified; Z12.5 Encounter for screening for malignant neoplasm of prostate; Z79.84 Long term (current) use of oral hypoglycemic drugs; Z68.35 Body mass index [BMI] 35.0-35.9, adult
CPT/HCPCS: 80053; 80061; 82043; 82306; 82570; 83036; 84436; 84443; 85025; G0103

== ENCOUNTER → 2021-04-30 13:43 | Outpatient (CLI) | payer OTHER, SELFPAY ==
[2021-04-30 14:27] LABS: Amphetamine/Metha Screen,Urine Negative ng/ml (<1000); Barbiturates Screen,Urine Negative ng/ml (<200)
[2021-04-30 14:28] LABS: Benzodiazepines Screen,Urine Negative ng/ml (<200); Cannabinoid Screen,Urine Negative ng/ml (<50)
[2021-04-30 14:30] LABS: Cocaine Screen,Urine Negative ng/ml (<300)
[2021-04-30 14:31] LABS: Methadone Screen,Urine Negative ng/ml (<300)
[2021-04-30 14:32] LABS: Opiate Screen,Urine Negative ng/ml (<300); Phencyclidine Screen,Urine Negative ng/ml (<25)
== END ==
PROVIDERS: Visit Provider Nurse Practitioner Family
DX: Z79.899 Other long term (current) drug therapy (principal)
CPT/HCPCS: 80305

== ENCOUNTER 2022-12-01 18:21 | Emergency (ER) | payer OTHER, SELFPAY ==
--- NOTE | 2022-12-01 18:44 | PC.NURSE ---
pt brought back to [facility] bed, wound cleaned with hibiclens and saline. Wet gauze on wound wrapped in coban.
--- NOTE | 2022-12-01 19:08 | PC.NURSE ---
PT PLACED BACK OUT TO WAITING ROOM , PT IS OK WITH THIS
[2022-12-01 20:40] VITALS: BP 156/100; PULSE 84; RESP 17; TEMP 36.7; O2SAT 98; BMI 30.7
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
--- NOTE | 2022-12-01 21:00 | PC.NURSE ---
pt to xray via WC
[2022-12-01 22:00] VITALS: BP 140/80; PULSE 85; RESP 20; TEMP 36.8; O2SAT 98
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
--- NOTE | 2022-12-01 22:43 | PC.NURSE ---
pt tolerated laceration repair well. He was given a tetanus vaccine to R deltoid.
--- NOTE | 2022-12-01 22:44 | PC.NURSE ---
Pt given wound care and dressings to replace when soiled
== END 2022-12-01 23:35 | disposition home or self-care (01) ==
PROVIDERS: Emergency Provider Emergency Medicine; PCP Nurse Practitioner Family
DX: S81.012A Laceration without foreign body, left knee, initial encounter (principal); W26.0XXA Contact with knife, initial encounter; G62.9 Polyneuropathy, unspecified; G47.33 Obstructive sleep apnea (adult) (pediatric)
CPT/HCPCS: 12001; 73562; 90471; 99283; 99284

== ENCOUNTER 2024-01-01 07:55 | Outpatient (POV) | payer OTHER, SELFPAY | END 2024-01-01 23:59 | disposition home or self-care (01) | LOC: SC 07:56 | PROVIDERS: Visit Provider Specialist/Technologist | DX: Z00.00 Encounter for general adult medical examination without abnormal findings (principal) ==

== ENCOUNTER 2024-01-25 12:48 | Outpatient (CLI) | payer OTHER, SELFPAY ==
--- NOTE | 2024-01-25 13:03 | MR_ITS ---
FINAL REPORT CLINICAL HISTORY: MRI Temporal Bones. HEARING LOSS IN LEFT EAR. FINDINGS: Multiplanar MR imaging of the brain was performed without and with contrast, with attention to the posterior fossa, cerebellopontine angles and internal auditory canals. Motion artifact seen on many sequences limits exam sensitivity. There is age-appropriate atrophy and mild microvascular ischemic change. There is no evidence of intracranial hemorrhage or mass. The ventricular size is within normal limits. There is no evidence of shift of the midline structures. No area of abnormal restricted diffusion is identified. Normal major vessel vascular flow voids are seen. No abnormal contrast enhancement is identified within the brain. No mass or abnormal contrast enhancement is seen within the cerebellopontine angles or internal auditory canals. No focal abnormality is identified of the temporal bones. IMPRESSION: No acute intracranial abnormality identified. No mass or abnormal contrast enhancement identified within the cerebellopontine angles or internal auditory canals. Reviewed, Interpreted and Dictated by Allen Hernandez III, MD Transcribed by Hyacinth Rowan Authenticated and [facility]
--- NOTE | 2024-01-25 13:10 | XR_ITS ---
FINAL REPORT TECHNIQUE: Orbits 2 views CLINICAL HISTORY: R/O METAL in eyes hx of metal in both eyes COMPARISON: None FINDINGS: ORBITS: Postoperative changes are present in the right lateral orbital wall and in the left mandible. No intraorbital foreign body is seen. IMPRESSION: Postop changes right lateral orbital wall and left mandible. No radiopaque foreign body is noted in the intraorbital region on either side. Reviewed, Interpreted and Dictated by Allen Hernandez III, MD Transcribed by Kristal Bowser Authenticated and . [facility]
[2024-01-25 13:28] LABS: Blood Urea Nitrogen 7 mg/dl (9-20); Estimated Glomerular Filt Rate 139 ml/min (>60); GFR (African American) 168 ML/MIN (>60)
[2024-01-25] MEDS: GADOTERIDOL INJ 17ML SYRINGE 20 ML IV (14:19)
[2024-01-25] MEDS: SODIUM CHLORIDE 0.9% 10ML SYR (RAD ONLY) 10 ML IV (14:19)
== END 2024-01-25 23:59 | disposition home or self-care (01) ==
PROVIDERS: PCP Nurse Practitioner Family; Visit Provider Nurse Practitioner
DX: H90.3 Sensorineural hearing loss, bilateral (principal); H93.13 Tinnitus, bilateral; H05.53 Retained (old) foreign body following penetrating wound of bilateral orbits
CPT/HCPCS: 36415; 70200; 70553; 82565; 84520; A9576

== ENCOUNTER 2024-03-17 10:01 | Emergency (ER) | payer OTHER, SELFPAY ==
--- NOTE | 2024-03-17 10:07 | XR_ITS ---
PROCEDURE INFORMATION: Exam: XR Left Wrist Exam date and time: 03/17/2024 10:08 AM Age: 59 years old Clinical indication: Pain; Wrist; Left TECHNIQUE: Imaging protocol: Radiologic exam of the left wrist. Views: 3 or more views. COMPARISON: No relevant prior studies available. FINDINGS: Bones/joints: No acute fracture or malalignment. Mild 1st CMC, STT and radiocarpal degenerative changes. Soft tissues: Normal. IMPRESSION: No acute fracture or malalignment.
--- NOTE | 2024-03-17 10:07 | XR_ITS ---
PROCEDURE INFORMATION: Exam: XR Left Hand Exam date and time: 03/17/2024 10:10 AM Age: 59 years old Clinical indication: Pain; Hand; Left TECHNIQUE: Imaging protocol: Radiologic exam of the left hand. Views: 3 or more views. COMPARISON: CR Wrist L 03/17/2024 10:08 AM FINDINGS: Bones/joints: No acute fracture or malalignment. Mild 1st CMC, STT and radiocarpal degenerative changes. Small corticated ossicle in the region of the DRUJ is favored to be remote. Soft tissues: Normal. IMPRESSION: No acute fracture or malalignment.
[2024-03-17 11:00] VITALS: BP 126/77; PULSE 62; RESP 18; TEMP 36.8; O2SAT 98; BMI 32.3
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
[2024-03-17 11:44] VITALS: BP 126/77; PULSE 62; RESP 18; TEMP 36.8; O2SAT 98
== END 2024-03-17 11:44 | disposition home or self-care (01) ==
PROVIDERS: Emergency Provider Nurse Practitioner Family; PCP Nurse Practitioner Family
DX: S63.92XA Sprain of unspecified part of left wrist and hand, initial encounter (principal); M19.032 Primary osteoarthritis, left wrist; X50.0XXA Overexertion from strenuous movement or load, initial encounter
CPT/HCPCS: 73110; 73130; 99204; 99212; G0463

== ENCOUNTER 2025-05-14 11:45 | Emergency (ER) | payer OTHER, SELFPAY ==
[2025-05-14] VITALS (12 sets, daily range): BP systolic 101–149; BP diastolic 70–97; PULSE 59–73; RESP 14–18; TEMP 37.1–37.2; O2SAT 95–98; BMI 36.0
--- OUTSIDE RECORDS SUMMARY | 2025-05-14 11:59 | XMS_ITS | Clinical Summary ---
Author Organization Healthcare Address [address] [place] [address] Care Team Providers Care Supervisor [employer] Name Role Phone Unavailable Primary Care Provider Unavailabl e Family History Medical History Relation Name Comments Allergies Brother 1 Arthritis Brother 2 Hypertension Brother 3 Arthritis Father Heart disease Father Hypertension Father Heart attack Maternal Grandmother Arthritis Mother Conversions - Other Mother Vascular Complications Coronary artery disease Mother Diabetes Mother Hypertension Mother Arthritis Other 1 Diabetes Other 2 Heart disease Other 3 Hypertension Other 4 Heart attack Paternal Grandmother Relation Name Status Comments Brother 1 Brother 2 Brother 3 Father Maternal Grandmother Mother Other 1 Other 2 Other 3 Other 4 Paternal Grandmother Social History Tobacco Use Types Packs/Day Years Used Date Smoking Tobacco: Never Alcohol Use Standard Drinks/Week Comments No 0 (1 standard drink = 0.6 oz pure alcohol) Alcoholic Drinks/day: Never Drank Alcohol Sex and Gender Information Value Date Recorded Sex Assigned at Not on file Legal Sex Male 6:23 PM EDT Gender Identity Not on file Sexual Orientation Not on file Last Filed Vital Signs Vital Sign Reading Time Taken Comments Blood Pressure - - Pulse - - Temperature - - Respiratory Rate - - Oxygen Saturation - - Inhaled Oxygen Concentration - - Weight 109 kg (241 lb 2.9 oz) 03/02/2017 10:22 A M EDT Height 170.2 cm (5' 7 ) 03/02/2017 10:22 AM EDT Body Mass Index 37.77 03/02/2017 10:22 AM EDT Plan of Treatment Not on file
--- OUTSIDE RECORDS SUMMARY | 2025-05-14 11:59 | XMS_ITS | Clinical Summary ---
Author Organization [facility] Address [address] [place] [address] Phone Care Team Providers Care Campus Receptionist Name Role Phone Unavailable Primary Care Provider Unavailabl e Social History Tobacco Use Types Packs/Day Years Used Date Smoking Tobacco: Never Assessed Sex and Gender Information Value Date Recorded Sex Assigned at Not on file Legal Sex Male 8:31 PM EDT Gender Identity Not on file Sexual Orientation Not on file Plan of Treatment Health Maintenance Due Date Last Done Comments Annual Wellness Exam 1969 DTaP/TDaP/Td (1 - Tdap) 1985 Hepatitis B Vaccine (1 of 3 - 19+ 3-dose series) 1985 Cologuard 2011 Colon Cancer Screening 2011 Colonoscopy 2011 FIT 2011 Sigmoidoscopy 2011 Virtual Colonography 2011 Pneumococcal Vaccine 50+ (1 of 1 - PCV) 02/26/2016 Zoster (1 of 2) 02/26/2016 COVID-19 Vaccine (1 - 2023-2 5 season) 2024 Influenza Vaccine (#1) 2025 Meningococcal B Vaccine Aged Out No l onger eligible based on patient's age to complete this topic Insurance * Guarantor: [facility] Account Type Relation to Patient Date of Phone Billing Address [employer] 1965 ATTN: KARSTEN PHELPS [id number] [place] [address] [employer]
--- NOTE | 2025-05-14 12:11 | ED_ITS ---
Discharge Plan Disposition Patient Disposition: Home, Self-Care Condition: Good Prescriptions Prescriptions: New methocarbamol 750 mg tablet 750 mg PO Q8H PRN (Reason: pain) Qty: 20 0RF No Action gabapentin 400 mg capsule PO Patient Comments: TAKE 1 CAPSULE BY MOUTH THREE TIMES DAILY cyclobenzaprine 5 mg tablet 5 mg PO BID PRN (Reason: muscle spasm) Qty: 30 0RF naproxen 500 mg tablet 500 mg PO Q12H 30 Days Qty: 60 0RF Rx Instructions: administer with food or milk famotidine [Heartburn Relief (famotidine)] 20 mg tablet See Rx Instructions .ROUTE .COMPLEX Qty: 30 2RF Dose Instruction: TAKE ONE TABLET BY MOUTH EVERY DAY Rx Instructions: TAKE ONE TABLET BY MOUTH EVERY DAY atorvastatin 80 mg tablet See Rx Instructions .ROUTE .COMPLEX Qty: 90 2RF Dose Instruction: TAKE ONE TABLET BY MOUTH EVERY DAY Rx Instructions: TAKE ONE TABLET BY MOUTH EVERY DAY omeprazole 20 mg capsule,delayed release(DR/EC) See Rx Instructions .ROUTE .COMPLEX Qty: 30 5RF Dose Instruction: TAKE ONE CAPSULE BY MOUTH EVERY DAY Rx Instructions: TAKE ONE CAPSULE BY MOUTH EVERY DAY aspirin 81 mg tablet,delayed release (DR/EC) See Rx Instructions .ROUTE .COMPLEX Qty: 90 0RF Dose Instruction: TAKE ONE TABLET BY MOUTH EVERY DAY Rx Instructions: TAKE ONE TABLET BY MOUTH EVERY DAY Jardiance 10 mg tablet See Rx Instructions .ROUTE .COMPLEX Qty: 30 5RF Dose Instruction: TAKE ONE TABLET BY MOUTH EVERY DAY Rx Instructions: TAKE ONE TABLET BY MOUTH EVERY DAY losartan 50 mg tablet See Rx Instructions .ROUTE .COMPLEX Qty: 180 3RF Dose Instruction: TAKE TWO TABLETS BY MOUTH EVERY DAY Rx Instructions: TAKE TWO TABLETS BY MOUTH EVERY DAY hydrochlorothiazide 25 mg tablet See Rx Instructions .ROUTE .COMPLEX Qty: 90 3RF Dose Instruction: TAKE ONE TABLET BY MOUTH EVERY DAY Rx Instructions: TAKE ONE TABLET BY MOUTH EVERY DAY glipizide 10 mg tablet extended release 24hr See Rx Instructions .ROUTE .COMPLEX Qty: 90 0RF Dose Instruction: TAKE ONE TABLET BY MOUTH EVERY DAY Rx Instructions: TAKE ONE TABLET BY MOUTH EVERY DAY amlodipine 2.5 mg tablet See Rx Instructions .ROUTE .COMPLEX Qty: 90 0RF Dose Instruction: TAKE ONE TABLET BY MOUTH EVERY DAY Rx Instructions: TAKE ONE TABLET BY MOUTH EVERY DAY bisoprolol fumarate 5 mg tablet See Rx Instructions .ROUTE .COMPLEX Qty: 90 0RF Dose Instruction: TAKE ONE TABLET BY MOUTH EVERY DAY Rx Instructions: TAKE ONE TABLET BY MOUTH EVERY DAY metformin 1,000 mg tablet See Rx Instructions .ROUTE .COMPLEX Qty: 180 0RF Dose Instruction: TAKE ONE TABLET BY MOUTH TWICE DAILY Rx Instructions: TAKE ONE TABLET BY MOUTH TWICE DAILY ibuprofen 600 mg tablet 600 mg PO Q6HP PRN (Reason: Mild Pain) Qty: 30 0RF Referrals Follow up/Referrals: Linda Echols APRN [Primary Care Provider, Medical] - See instructions Activity Restrictions/Add. Instructions Additional Instructions/Restrictions: You were evaluated in the emergency department today. At this time, your workup is reassuring. Your labs are normal, it does not look like there is any evidence of infection. Your liver enzymes and lipase are normal. Your heart enzymes and EKG are also normal. We did CT scans and x-rays of your shoulder, chest, and of your spine, and everything looks good. It is possible you may need an MRI as an outpatient if you continue to have pain. 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 Please also take Tylenol and ibuprofen at home as needed for pain in addition to this. 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 You were given a dose of medication here that should start to help you over the next 24 hours. Return to the emergency department for new or worsening symptoms. Clinical Impressions Clinical Impression: Acute pain of right shoulder Stand Alone Forms Stand Alone Forms: Work/School Release Instructions Patient Instructions: DI for Shoulder Pain, DI for Thoracic Back Pain Print Language Print Language: Scottish Discharge ED Provider: Nisha Shaffer General Adult HPI General Chief complaint: Back Pain/Injury Stated complaint: back pain Time Seen by Provider: 05/14/25 11:51 Mode of Arrival: Ambulatory Source of Information: Patient Description of Symptoms (Recalled from ER Triage Doc. by RN): Pt presents to the ED with right lower back pain. pt reports that 2-3 weeks ago he woke up with right shoulder pain that went to his left shoulder. pt was seen bu his PCP and was given a steroid shot. pt states that 3 days ago he woke up with right lower back pain. pt reports having similar episodes in the past but has ignored it. Denies trouble with urination and bowel movements. History of Present Illness HPI narrative: This patient is a 60-year-old male with a history of hypertension, hyperlipidemia, CAD, HEATHER, obesity, diabetes, GERD presented to the emergency department for evaluation with concern for right-sided abdominal/back/shoulder pain. Patient states that he has had 2 to 3 weeks of right shoulder pain, for which he saw his PCP Wm and was given a steroid shot. He states that it he also sent home with oral steroids. He notes it got a little bit better and he stopped taking the steroids, but then it came back 2 to 3 days ago much worse. He states that now it goes from his right lateral ribs/abdomen straight through to his back and is worse anytime he tries to take a deep breath. He denies any fevers, chills, cough, congestion, abdominal pain, nausea, vomiting, changes of bowel movements, urinary symptoms, or other concerns. He also denies any recent falls or traumatic injury. He states that he had issues like this in the past but has ignored it and it typically goes away. Related Data Home Medications ?Medication ?Instructions ?Recorded ?Confirmed gabapentin 400 mg capsule mg PO 09/25/24 09/25/24 Previous Rx's ?Medication ?Instructions ?Recorded famotidine 20 mg tablet (Heartburn See Rx Instructions .Route 12/08/20 Relief (famotidine)) .COMPLEX #30 tabs cyclobenzaprine 5 mg tablet 5 mg PO BID PRN muscle spa sm #30 04/07/21 tabs naproxen 500 mg tablet 500 mg PO Q12H 30 days #60 t abs 04/30/21 atorvastatin 80 mg tablet See Rx Instructions .Route 0 06/25/21 .COMPLEX #90 tabs omeprazole 20 mg capsule,delayed See Rx Instructions . Route 11/23/21 release .COMPLEX #30 caps aspirin 81 mg tablet,delayed See Rx Instructions .Rout e 02/17/22 release .COMPLEX #90 tabs empagliflozin 10 mg tablet See Rx Instructions .Route 04/19/22 (Jardiance) .COMPLEX #30 tabs hydrochlorothiazide 25 mg tablet See Rx Instructions . Route 09/19/22 .COMPLEX #90 tabs losartan 50 mg tablet See Rx Instructions .Route 1 11/20/21 .COMPLEX #180 tabs amlodipine 2.5 mg tablet See Rx Instructions .Route 0 10/20/22 .COMPLEX #90 tabs bisoprolol fumarate 5 mg tablet See Rx Instructions .R oute 10/20/22 .COMPLEX #90 tabs glipizide 10 mg tablet, extended See Rx Instructions . Route 10/20/22 release 24 hr .COMPLEX #90 tabs metformin 1,000 mg tablet See Rx Instructions .Route 0 10/20/22 .COMPLEX #180 tabs ibuprofen 600 mg tablet 600 mg PO Q6HP PRN Mild Pain #30 03/17/24 tabs methocarbamol 750 mg tablet 750 mg PO Q8H PRN pain #20 tabs 05/14/25 Allergies Allergy/AdvReac Type Severity Reaction Status Date / Time No Known Allergies Allergy Verified 09/25/24 15:08 [facility] Disclaimer: The information contained in this section may have been updated after the patient was seen, as this information can be updated by other users. Medical History Tinnitus, bilateral Sensorineural hearing loss (SNHL), bilateral Recurrent acute otitis media of left ear Hearing Loss Neuropathy HEATHER (obstructive sleep apnea) Social History Smoking Status: Current every day smoker tobacco type: smokeless tobacco alcohol intake: current alcohol intake frequency: holidays/special occasions only substance use type: denies use current occupational status: other Travel in the last 8 weeks?: None household members: family housing: house Have you lived/traveled outside [place] in past 30 days?: No Contact w/someone who lives/traveled outside [place] past 30 days?: No Exposure to someone with infectious disease in past 14 days?: No Do you have a fever (greater than 100.4 F or 38 C)?: No Have you tested positive for COVID-19?: No Exposed to someone with COVID-19 in past 14 days?: No Do you have a sore throat?: No Do you have a cough?: No Do you have any weakness?: No Do you have any diarrhea?: No Are you experiencing any unusual bleeding?: No Do you have any muscle aches/pain?: No Do you have any abdominal pain?: No Are you experiencing loss of taste or smell?: No Other Medical History Have you received the Flu Vaccine for this season: No Have you received the Pneumonia Vaccine: No ROS Obtained: Yes All systems reviewed & no additional complaints except as documented Physical Exam General General appearance: alert and in no apparent distress Head Head exam: atraumatic and normocephalic Eye Eye exam: Present normal appearance, PERRL and EOMI ENT ENT exam: Present normal exam, normal oropharynx, mucous membranes moist and normal external ear exam Neck Neck exam: Present normal inspection, full ROM and trachea midline; Absent tenderness Chest Chest inspection: Present normal inspection and symmetric chest wall rise; Absent tenderness Respiratory Respiratory exam: Present normal lung sounds bilaterally; Absent respiratory distress, wheezes, stridor or accessory muscle use Cardiovascular Cardiovascular exam: Present regular rate and normal rhythm Abdominal Exam Abdominal exam: Present soft; Absent distention, tenderness or guarding Extremities Exam Extremities exam: Present normal inspection, full ROM and normal capillary refill; Absent tenderness or edema Back Exam Back exam: Present normal inspection and full ROM; Absent tenderness Neurological Exam Neurological exam: Present alert, oriented X3, CN II-XII intact and normal gait; Absent motor sensory deficit Psychiatric Psychiatric exam: Present normal affect and normal mood Skin Skin exam: Present warm and dry Medical Decision Making Medical Records Medical records reviewed: Yes I reviewed the patient's medical records. Screening: Per USPSTF and CDC recommendations, given the prevalence of disease in our region, it is our hospital?s policy to screen for HIV and viral Hepatitis for all patients aged 18 and over and those with ongoing risk factors. Demarco Inquiry Pt receiving controlled substance: No Vital Signs: 05/14/25 11:59 05/14/25 12:00 05/14/25 12:08 Temperature 98.7 F 98.7 F Temperature Source Oral Oral Pulse Rate 71 73 Pulse Rate [Right] 73 Respiratory Rate 14 14 Blood Pressure 132/80 140/85 Blood Pressure [Right Arm] 140/85 Blood Pressure Mean Blood Pressure Mean [Right Arm] 103 Blood Pressure Source Automatic Cuff Blood Pressure Source [Right Arm] Automatic Cuff Blood Pressure Position Supine Blood Pressure Position [Right Arm] Supine 02 Sat by Pulse Oximetry 96 97 96 Oxygen Delivery Method Room Air Room Air 05/14/25 12:20 05/14/25 12:40 05/14/25 13:17 Temperature Temperature Source Pulse Rate 73 68 62 Pulse Rate [Right] Respiratory Rate Blood Pressure 149/96 H 143/97 H 110/70 Blood Pressure [Right Arm] Blood Pressure Mean Blood Pressure Mean [Right Arm] Blood Pressure Source Blood Pressure Source [Right Arm] Blood Pressure Position Blood Pressure Position [Right Arm] 02 Sat by Pulse Oximetry 95 97 96 Oxygen Delivery Method 05/14/25 13:20 05/14/25 13:40 05/14/25 14:00 Temperature Temperature Source Pulse Rate 65 65 60 Pulse Rate [Right] Respiratory Rate 18 18 Blood Pressure 111/75 101/71 L 113/71 Blood Pressure [Right Arm] Blood Pressure Mean 76 77 Blood Pressure Mean [Right Arm] Blood Pressure Source Blood Pressure Source [Right Arm] Blood Pressure Position Blood Pressure Position [Right Arm] 02 Sat by Pulse Oximetry 95 96 96 Oxygen Delivery Method 05/14/25 14:20 05/14/25 14:40 05/14/25 14:41 Temperature 98.9 F Temperature Source Pulse Rate 60 63 59 L Pulse Rate [Right] Respiratory Rate 16 18 16 Blood Pressure 113/72 101/70 L 113/72 Blood Pressure [Right Arm] Blood Pressure Mean 85 75 Blood Pressure Mean [Right Arm] Blood Pressure Source Blood Pressure Source [Right Arm] Blood Pressure Position Blood Pressure Position [Right Arm] 02 Sat by Pulse Oximetry 98 97 Oxygen Delivery Method Room Air Lab Data Lab results reviewed: Yes I reviewed the patient's lab results. Lab Results 05/14/25 11:50: Urine Color Yellow, Urine Appearance Clear, Urine pH 6.0, Ur Specific Mission <= 1.005, Urine Protein Negative, Urine Glucose (UA) 3+, Urine Ketones Negative, Urine Blood Negative, Urine Nitrate Negative, Urine Bilirubin Negative, Urine Urobilinogen 0.2, Ur Leukocyte Esterase Negative, Urine RBC None, Urine WBC None, Ur Squamous Epith Cells Occasional, Urine Bacteria Trace 05/14/25 12:18: WBC 7.1, RBC 5.20, Hgb 16.4, Hct 47.7, MCV 91.7, MCH 31.5 H, MCHC 34.4, RDW 12.4, Plt Count 269, MPV 9.8, Neut % (Auto) 61.3, Lymph % (Auto) 24.9, [place] % (Auto) 8.9, Eos % (Auto) 3.4, Baso % (Auto) 1.1, Neut # (Auto) 4.4, Lymph # (Auto) 1.8, [place] # (Auto) 0.6, Eos # (Auto) 0.2, Baso # (Auto) 0.1, PT 10.8, INR 0.97, D-Dimer 0.43, Sodium 134 L, Potassium 3.7, Chloride 96 L, Carbon Dioxide 31 H, Anion Gap 10.7, BUN 13, Creatinine 0.70, Estimated Creat Clear 168, Estimated GFR 115, Est GFR ( Amer) 140, Glucose 109 H, Calcium 9.4, Total Bilirubin 0.9, AST 31, ALT 26, Alkaline Phosphatase 114, Troponin I < 0.01, Total Protein 8.1, Albumin 3.9, Globulin 4.2 H, Albumin/Globulin Ratio 0.9 L, Lipase 226 05/14/25 12:18 05/14/25 12:18 Orders (Tests/Meds): ED MEDICATIONS Discontinued Medications Generic Name Dose Route Start Last Admin Trade Name Freq PRN Reason Stop Dose Admin Acetaminophen 1,000 mg 05/14/25 12:09 05/14/25 12:39 Acetaminophen 500mg Tab PO 05/14/25 12:10 1,000 mg ONCE ONE Administration Dexamethasone Sodium Phosphate 10 mg 05/14/25 14:28 05/14/25 14:44 Dexamethasone 4mg/Ml 1ml Vial IV 05/14/25 14:29 10 mg ONCE ONE Administration Diazepam 2 mg 05/14/25 14:28 05/14/25 14:41 Diazepam 2mg Tablet PO 05/14/25 14:29 2 mg ONCE ONE Administration Ketorolac Tromethamine 15 mg 05/14/25 12:09 05/14/25 12:38 Ketorolac 30mg/Ml Vial IV 05/14/25 12:10 15 mg ONCE ONE Administration Lidocaine 1 each 05/14/25 12:09 05/14/25 12:38 Lidocaine 5% Transdermal Patch TD 05/14/25 12:10 1 each ONCE ONE Administration Methocarbamol 500 mg 05/14/25 12:09 05/14/25 12:38 Methocarbamol 500mg Tablet PO 05/14/25 12:10 500 mg ONCE ONE Administration ORDERS Category Date Time Status CT thoracic spine wo con Stat Cat Scan 05/14/25 12:49 Completed CXR 2 view (NOT portable) [XR chest 2V] Stat Exams 05/14/25 12:49 Completed Shoulder XR right miminum 2 views [XR shoulder RT min Exams 05/14/25 12:49 Completed 2V] Stat CBC w/Auto Diff [Complete Blood Count Auto Diff] Stat Lab 05/14/25 12:18 Completed CMP [Comprehensive Metabolic Panel] Stat Lab 05/14/25 12:18 Completed D-Dimer Stat Lab 05/14/25 12:18 Completed INR [Prothrombin Time INR] Stat Lab 05/14/25 12:18 Completed Lipase Stat Lab 05/14/25 12:18 Completed Trop I [Troponin I] Stat Lab 05/14/25 12:18 Completed UA [Urinalysis and Microscopic] Stat Lab 05/14/25 11:50 Completed ECG Data Tracing #1: I reviewed this ECG and interpreted as documented below: I independently interpreted EKG at 12:37 PM and noted normal sinus rhythm with a ventricular of [address] changes concerning for STEMI. Normal intervals ECG initial impression date: 05/14/25 ECG initial impression time: 12:37 Medical Decision Narrative: In summary, this patient is a 60-year-old male presenting to the Emergency Department for evaluation of sided rib/back/abdomen pain going to his right shoulder that has been intermittent for quite some time, worse 3 weeks ago that improved with a steroid shot, worse again over the last 2 to 3 days. Differential diagnoses considered include but are not limited to musculoskeletal strain/sprain, thoracic radiculopathy, rib contusion, spine fracture, cholecystitis, hepatitis, cholangitis, pancreatitis, ureterolithiasis, pyelonephritis, PE among others. ruling out the most morbid conditions drove assessment. It should be noted patient's history includes CAD, hypertension lipidemia, GERD, diabetes which likely are not at goal therapy. This complicates all aspects of care by increasing patient's risk for morbidity. I reviewed patient's past medical records and noted prior history of reported noncompliance. Also noted prior evaluations in the past remotely for back pain. On exam, the patient is sitting upright in no acute distress. He has normal vitals on cardiac telemetry. He is afebrile and nontoxic-appearing. He denies any GI symptoms or urinary symptoms. His pain is worse when he takes deep breath but I am not able to reproduce it with palpation at all. Abdominal exam is benign. His lungs are clear to auscultation. Workup included CBC, CMP, lipase, troponin, D-dimer, INR, urinalysis, EKG. He was given IV Toradol, oral Tylenol, topical Lidoderm patch, and oral Robaxin for symptomatic improvement. Labs obtained demonstrate reassuring CBC with no significant leukocytosis. Chemistry demonstrates very mild hyponatremia but otherwise is reassuring. Liver enzymes are normal, lipase is normal, bilirubin is normal. I do not feel that he likely has cholecystitis, hepatitis, or abdominal cause of his pain. His abdominal exam is completely benign with no tenderness is reproducible. D- dimer obtained is negative. Troponin is negative. Given reassuring labs, elected to obtain CT thoracic spine, shoulder x-ray, and two-view chest x-ray. I independently interpreted and CT prior to the radiologist read and noted no acute fracture. Please see their read for final interpretation Ultimately, I feel that we have excluded acute life-threatening pathology as a cause of the patient's symptoms and he is appropriate for discharge home with close PCP follow-up for further evaluation and management of this acute on chronic shoulder and neck pain. He is not getting improvement with administration of interventions above, so I gave IV dexamethasone and oral Valium. I am discharging with prescription for Robaxin and instructions for supportive care. Strict return precautions given Critical Care Critical Care Time Critical Care Time: No
[2025-05-14 12:12] LABS: Microscopic, Urine URINE MICROSCOPIC (MICROSCOPIC)
[2025-05-14 12:16] LABS: Bilirubin,Urine Negative (Negative); Color,Urine YELLOW (Yellow); Glucose,Urine (UA) 3+ (Negative); Ketones,Urine Negative (Negative); Leukocyte Esterase,Urine Negative (Negative); PH,Urine 6.0 (5.0-8.5); Protein,Urine Negative (Negative); Specific Gravity, Urine <= 1.005 (1.005-1.030); Urobilinogen,Urine 0.2 EU/dl (0.2)
--- NOTE | 2025-05-14 12:21 | PC.NURSE ---
Rounded on patient, no needs voiced at this time.
[2025-05-14 12:24] LABS: Bacteria,Urine Trace /lpf; Squamous Epithelial Cell,Urine Occasional #/hpf (0-5)
[2025-05-14 12:29] LABS: Hematocrit 47.7 % (42.0-52.0); Hemoglobin 16.4 g/dL (14.1-18.0); Immature Granulocytes % 0.4 %; Mean Corpuscular HGB Conc 34.4 g/dL (31.8-35.4); Mean Corpuscular Hemoglobin 31.5 pg (27.0-31.2); Mean Corpuscular Volume 91.7 fl (80-94); Nucleated Red Blood Cells % 0 %; Platelet Count 269 K/mm3 (142-424); Red Blood Count 5.20 M/mm3 (4.60-6.20); Red Cell Distribution Width-SD 42.0 fL; White Blood Count 7.1 K/mm3 (4.8-10.8)
[2025-05-14 12:34] LABS: Albumin Level 3.9 g/dl (3.5-5.0); Chloride 96 mmol/L (98-107); Potassium 3.7 mmoL/L (3.5-5.1); Sodium 134 mmol/L (136-145)
--- NOTE | 2025-05-14 12:34 | ECG_ITS ---
APPROVED REPORT Exam: Resting ECG HR:65 bpm ECG Measurements Heart Rate 65 AXES MS 160 P 29 QRSd 102 QRS -3 QT 399 T 14 QTc 410 Conclusion SINUS RHYTHM NORMAL ECG Electronically signed by : REBEKAH CABRERA, 05/14/2025 15:25:48
[2025-05-14 12:37] LABS: Alanine Aminotransferase 26 U/L (12-78); Albumin/Globulin Ratio 0.9 (1.1-1.8); Alkaline Phosphatase 114 U/L (38-126); Anion Gap 10.7 mEq/L (5-15); Aspartate Amino Transferase 31 U/L (17-59); Bilirubin,Total 0.9 mg/dl (0.2-1.3); Blood Urea Nitrogen 13 mg/dl (9-20); Calcium 9.4 mg/dl (8.4-10.2); Carbon Dioxide 31 mmol/L (22.0-30.0); Creatinine Clearance Estimated 168 mL/min (50-200); Creatinine,Serum 0.70 mg/dl (0.66-1.25); Estimated Glomerular Filt Rate 115 ml/min (>60); GFR (African American) 140 ML/MIN (>60); Globulin 4.2 g/dL (1.3-3.2); Glucose 109 mg/dl (74-100); Lipase 226 U/L (23-300); Total Protein,Serum 8.1 g/dl (6.3-8.2)
[2025-05-14] MEDS: KETOROLAC 30MG/ML VIAL 15 MG IV (12:38)
[2025-05-14] MEDS: LIDOCAINE 5% TRANSDERMAL PATCH 1 EACH TD (12:38)
[2025-05-14] MEDS: METHOCARBAMOL 500MG TABLET 500 MG PO (12:38)
[2025-05-14 12:39] LABS: INR 0.97 (0.9-1.1); Prothrombin Time 10.8 seconds (10.1-12.5)
[2025-05-14] MEDS: ACETAMINOPHEN 500MG TAB 1000 MG PO (12:39)
[2025-05-14 12:45] LABS: D-Dimer 0.43 ug/mL (0.0-0.5)
--- NOTE | 2025-05-14 12:49 | XR_ITS ---
FINAL REPORT CLINICAL HISTORY: shoulder/back pain FINDINGS: RIGHT SHOULDER Three views were obtained. There is no fracture or dislocation. There is degenerative joint disease. No soft tissue abnormality is identified. IMPRESSION: No acute process. Reviewed, Interpreted and Dictated by Breanna Reed MD Transcribed by Elizabeth Horowitz Authenticated and . [facility]
--- NOTE | 2025-05-14 12:49 | CT_ITS ---
FINAL REPORT TECHNIQUE: Thin section axial images were obtained through the thoracic spine without contrast. Sagittal and coronal images were obtained from the axial data. CLINICAL HISTORY: shoulder/back pain FINDINGS: There is no acute fracture of the thoracic spine. There is no malalignment. Multilevel degenerative disease is noted. No acute paraspinal abnormality is identified. IMPRESSION: No acute osseous abnormality of the thoracic spine. Degenerative disc disease. Consider MRI if pain persists. Reviewed, Interpreted and Dictated by Breanna Reed MD Transcribed by Elizabeth Horowitz Authenticated and [facility]
--- NOTE | 2025-05-14 12:49 | XR_ITS ---
FINAL REPORT CLINICAL HISTORY: shoulder/back pain COMPARISON: 10/22/2017 FINDINGS: PA and lateral views of the chest were obtained. The cardiac and mediastinal silhouettes are within normal limits. The lungs are clear. There is no pleural effusion or pneumothorax. No acute osseous abnormality is identified. IMPRESSION: No radiographic evidence of acute cardiac or pulmonary disease. Reviewed, Interpreted and Dictated by Breanna Reed MD Transcribed by Elizabeth Horowitz Authenticated and [facility]
[2025-05-14 12:54] LABS: Troponin I < 0.01 ng/ml (0.00-0.034)
--- NOTE | 2025-05-14 13:15 | PC.NURSE ---
upon triage and iv start pt was very rude and short with nurse saying that we were mean nasty vampires and gonna bleed him dry
[2025-05-14] MEDS: DEXAMETHASONE 4MG/ML 1ML VIAL 10 MG IV (14:44)
== END 2025-05-14 14:47 | disposition home or self-care (01) ==
PROVIDERS: Emergency Provider Emergency Medicine; PCP Nurse Practitioner Family
DX: M25.511 Pain in right shoulder (principal)
CPT/HCPCS: 71046; 72128; 73030; 80053; 81001; 83690; 84484; 85025; 85378; 85610; 93005; 96374; 96375; 99285; J1100; J1885